=== PATIENT | female | born 1970 | race Caucasian/White ===

== ENCOUNTER 2020-05-28 13:08 | Inpatient (IN) | payer SELFPAY ==
[~2020-05-28] VITALS: Ht 165.1 cm; Wt 74.8 kg
[2020-05-28 15:48] LABS: HEMATOCRIT. 28.3 % (36.0-48.0); HEMOGLOBIN. 8.4 g/dL (12.0-16.0); MEAN CORPUSCULAR HEMOGLOBIN 19.5 pg (28.0-32.0); MEAN CORPUSCULAR VOLUME 65.4 fL (81.0-99.0); MEAN PLATELET VOLUME 7.6 fl (7.4-10.4); PLATELET 294 x1000/uL (130-400); RED BLOOD CELL COUNT 4.32 mill/uL (4.2-5.4); RED CELL DISTRIBUTION WIDTH 17.6 % (11.6-14.6)
[2020-05-28 16:01] LABS: CHLORIDE 110 mEq/L (98-107)
[2020-05-28 16:34] LABS: CLARITY URINE CLEAR (CLEAR); COLOR URINE YELLOW (YELLOW); KETONES URINE NEGATIVE (NEGATIVE); LEUKOCYTE ESTERASE URINE NEGATIVE (NEGATIVE); NITRITE URINE NEGATIVE (NEGATIVE); OCCULT BLOOD URINE NEGATIVE (NEGATIVE); PROTEIN URINE NEGATIVE (NEGATIVE); SPECIFIC GRAVITY URINE 1.024 (1.005-1.030)
[2020-05-28] MEDS ORDERED: VANCOMYCIN 1 G PREMIX 200 ML IV SCH (16:45)
[2020-05-28 17:17] LABS: PLATELET ESTIMATE NORMAL
[2020-05-28] MEDS ORDERED: DOCUSATE SODIUM 100MG CAPSULE PO PRN (18:00)
[2020-05-28] MEDS ORDERED: NITROGLYCERIN 0.4MG TABLET SL SL PRN (18:00)
[2020-05-28] MEDS ORDERED: MAGNESIUM/ALUMINUM HYDROXIDE/SIMETHICONE 30ML UDC PO PRN (18:00)
[2020-05-28] MEDS ORDERED: NA PHOS,M-B/NA PHOS,DI-BA ENEMA 118ML PR PRN (18:00)
[2020-05-28] MEDS ORDERED: ACETAMINOPHEN 325MG TABLET PO PRN ×2 (18:00)
[2020-05-28] MEDS ORDERED: ONDANSETRON HCL 4MG/2ML INJ IV PRN (18:00)
[2020-05-28] MEDS ORDERED: ZOLPIDEM TARTRATE 5MG TABLET PO PRN (18:00)
[2020-05-28] MEDS ORDERED: GUAIFENESIN 200MG/10ML SUGAR FREE UDC PO PRN (18:00)
[2020-05-28] MEDS ORDERED: KETOROLAC 15MG/ML VIAL IV PRN (18:00)
[2020-05-28] MEDS ORDERED: CLONIDINE 0.1MG TABLET PO PRN (18:00)
[2020-05-28] MEDS ORDERED: IPRATROPIUM/ALBUTEROL 0.5-3(2.5)MG/3ML NEB NEB PRN (18:00)
[2020-05-28] MEDS ORDERED: ENOXAPARIN 40MG/0.4ML SYR SUBCUT SCH (20:00)
[2020-05-28 20:28] LABS: TOTAL IRON BINDING CAPACITY 380 ug/dL (250-450)
[2020-05-28 20:37] LABS: *AMPHETAMINES SCREEN URINE PRESUMTIVE POSITIVE (NEGATIVE); *BARBITURATES SCREEN URINE PRESUMTIVE POSITIVE (NEGATIVE); *BENZODIAZEPINES SCREEN URINE NEGATIVE (NEGATIVE); CANNABINOID URINE SCREEN NEGATIVE (NEGATIVE); OPIATES URINE SCREEN NEGATIVE (NEGATIVE); PHENCYCLIDINE URINE SCREEN NEGATIVE (NEGATIVE)
[2020-05-28 20:38] LABS: *COCAINE SCREEN URINE NEGATIVE (NEGATIVE); METHADONE URINE SCREEN NEGATIVE (NEGATIVE)
[2020-05-28 20:42] LABS: FOLIC ACID (FOLATE) SERUM 14.2 ng/mL (>5.38)
[2020-05-28] MEDS: FAMOTIDINE 20MG TABLET PO SCH (21:00)
[2020-05-28] MEDS: ASCORBIC ACID 500 MG TABLET PO SCH (21:00)
[2020-05-28] MEDS ORDERED: IOHEXOL-300 100 ML BOTTLE ONE (21:27)
[2020-05-28 21:32] LABS: D-DIMER 0.91 mg/L FEU (<0.50); INR 1.1; PROTHROMBIN TIME 11.3 sec (9.6-11.0)
[2020-05-28] MEDS: PIPERACILLIN/TAZ 3.375G PREMIX 50 ML IV SCH (22:58)
[2020-05-29 00:57] VITALS: BP 134/84
[2020-05-29 01:12] VITALS: BP 135/64
[2020-05-29] MEDS: PIPERACILLIN/TAZ 3.375G PREMIX 50 ML IV SCH (02:30)
[2020-05-29 04:00] VITALS: BP 135/83
[2020-05-29] MEDS ORDERED: VANCOMYCIN 750 MG PREMIX 150 ML IV SCH (06:00)
[2020-05-29 06:03] LABS: CHLORIDE 109 mEq/L (98-107)
[2020-05-29 06:12] LABS: PHOSPHORUS 3.6 mg/dL (2.5-4.9)
[2020-05-29 06:53] LABS: HEMATOCRIT. 29.9 % (36.0-48.0); HEMOGLOBIN. 8.7 g/dL (12.0-16.0); MEAN CORPUSCULAR HEMOGLOBIN 19.1 pg (28.0-32.0); MEAN CORPUSCULAR VOLUME 65.3 fL (81.0-99.0); MEAN PLATELET VOLUME 8.4 fl (7.4-10.4); PLATELET 292 x1000/uL (130-400); RED BLOOD CELL COUNT 4.58 mill/uL (4.2-5.4)
[2020-05-29] MEDS ORDERED: CHOLECALCIFEROL (D3) 1000 UNIT TABLET PO SCH (09:00)
[2020-05-29] MEDS ORDERED: ZINC SULFATE 220 MG ( 50 ) CAPSULE PO SCH (09:00)
[2020-05-29] MEDS: FAMOTIDINE 20MG TABLET PO SCH (09:16)
[2020-05-29] MEDS: ASCORBIC ACID 500 MG TABLET PO SCH (09:16)
[2020-05-29] MEDS: PIPERACILLIN/TAZOBACTAM 3.375 G in DEXT 5% WATER 100 ML IV SCH ×2 (12:00→16:43)
[2020-05-29] MEDS ORDERED: VANCOMYCIN 1 G PREMIX 200 ML IV SCH (14:00)
[2020-05-29 15:55] LABS: NUCLEATED RED BLOOD CELLS 2 /100 WBC
[2020-05-29 15:56] LABS: PLATELET ESTIMATE NORMAL
== END 2020-05-29 18:10 | disposition left against medical advice (07) | DRG 720 ==
LOC: ER 13:08 → 7WST 16:38 → EDBEDREQ 17:10 → EDBEDREQSVC 18:50 → ENRESERV 23:38
PROVIDERS: ADMIT Internal Medicine; ATTEND Internal Medicine
DX: A41.9 Sepsis, unspecified organism (principal); U07.1 COVID-19; L03.116 Cellulitis of left lower limb; D63.8 Anemia in other chronic diseases classified elsewhere; E83.51 Hypocalcemia; F15.10 Other stimulant abuse, uncomplicated; Z53.29 Procedure and treatment not carried out because of patient's decision for other reasons
CPT/HCPCS: 36415; 71045; 72193; 80048; 80053; 80305; 81003; 82607; 82746; 83540; 83550; 83605; 83615; 83735; 83880; 84100; 84145; 85025; 85379; 87426; 93005; 93970; 96365; 99285; J1650; J1885; J2543; J3370; J7060; Q9967; U0003

== ENCOUNTER 2020-10-02 04:36 | Emergency (ER) | payer MEDICAID, OTHER ==
[~2020-10-02] VITALS: Ht 165.1 cm; Wt 75.0 kg
[2020-10-02 04:40] VITALS: BP 125/83
== END 2020-10-02 05:48 | disposition left against medical advice (07) ==
LOC: ER 04:36
DX: Z53.21 Procedure and treatment not carried out due to patient leaving prior to being seen by health care provider (principal); R51.9 Headache, unspecified

== ENCOUNTER 2021-08-23 20:44 | Emergency (ER) | payer MEDICAID, OTHER ==
[~2021-08-23] VITALS: Ht 167.6 cm; Wt 63.0 kg
[2021-08-23] MEDS ORDERED: MORPHINE SULFATE 4 MG/ML CPJ (NOT FOR IM USE) IV STA (22:03)
[2021-08-23] MEDS ORDERED: SODIUM CHLORIDE 0.9% 1,000 ML IV ONE (22:15)
[2021-08-23] MEDS ORDERED: HEPARIN 5000 UNITS/ML VIAL IV SCH (23:15)
[2021-08-23] MEDS ORDERED: HEPARIN 25,000 UNITS PREMIX 250 ML IV PRN (23:15)
[2021-08-23] MEDS ORDERED: MORPHINE SULFATE 4 MG/ML CPJ (NOT FOR IM USE) IV NR (23:39)
[2021-08-24] MEDS ORDERED: HEPARIN 80 UNITS/KG BOLUS IV NR
[2021-08-24] MEDS ORDERED: HEPARIN 25,000 UNITS PREMIX 250 ML IV SCH
[2021-08-24 00:01] LABS: BASOPHILS % 0.8 % (0.0-2.0); EOSINOPHILS % 2.3 % (0.0-5.0); HEMATOCRIT. 35.2 % (36.0-48.0); HEMOGLOBIN. 10.7 g/dL (12.0-16.0); LYMPHOCYTES % 20.5 % (20.0-50.0); MEAN CORPUSCULAR HEMOGLOBIN 20.6 pg (28.0-32.0); MEAN CORPUSCULAR VOLUME 67.7 fL (81.0-99.0); MEAN PLATELET VOLUME 7.6 fl (7.4-10.4); MONOCYTES % 6.4 % (2.0-8.0); PLATELET 319 x1000/uL (130-400)
[2021-08-24 00:10] LABS: CHLORIDE 112 mEq/L (98-107)
[2021-08-24 00:20] LABS: D-DIMER 4.24 mg/L FEU (<0.50); PARTIAL THROMBOPLASTIN TIME 27.3 sec (23.4-31.0)
[2021-08-24 02:00] VITALS: BP 132/76
[2021-08-24 05:17] LABS: PLATELET ESTIMATE NORMAL
[2021-08-24] MEDS ORDERED: HEPARIN BOLUS PRN aPTT <36 IV (06:00)
[2021-08-24] MEDS ORDERED: HEPARIN BOLUS PRN aPTT 37-44 IV (06:00)
== END 2021-08-24 02:43 | disposition short-term general hospital (02) ==
LOC: ER 20:44 → CANBEDREQ 08-24 04:42
DX: I82.493 Acute embolism and thrombosis of other specified deep vein of lower extremity, bilateral (principal); F15.10 Other stimulant abuse, uncomplicated; D64.9 Anemia, unspecified
CPT/HCPCS: 36415; 74176; 80053; 83690; 85025; 85379; 85610; 85730; 93970; 96365; 96366; 96375; 99291; J1644; J2270; J7030

== ENCOUNTER 2022-04-16 11:21 | Emergency (ER) | payer MEDICAID, OTHER ==
[~2022-04-16] VITALS: Ht 170.2 cm; Wt 68.0 kg
[2022-04-16] MEDS ORDERED: KETOROLAC 30MG/ML VIAL IV STA (11:49)
[2022-04-16] MEDS ORDERED: SODIUM CHLORIDE 0.9% 1,000 ML IV ONE (12:00)
[2022-04-16 13:37] LABS: BASOPHILS % 0.9 % (0.0-2.0); EOSINOPHILS % 0.8 % (0.0-5.0); HEMATOCRIT. 35.5 % (36.0-48.0); LYMPHOCYTES % 24.1 % (20.0-50.0); MEAN CORPUSCULAR HEMOGLOBIN 21.7 pg (28.0-32.0); MEAN PLATELET VOLUME 8.1 fl (7.4-10.4); MONOCYTES % 7.3 % (2.0-8.0); NEUTROPHILS % 66.9 % (40.0-76.0); PLATELET 333 x1000/uL (130-400); RED BLOOD CELL COUNT 5.07 mill/uL (4.2-5.4); RED CELL DISTRIBUTION WIDTH 17.3 % (11.6-14.6)
[2022-04-16 13:45] LABS: CHLORIDE 109 mEq/L (98-107)
[2022-04-16 13:50] LABS: INR 1.1; PROTHROMBIN TIME 11.3 sec (9.6-11.0)
[2022-04-16 14:14] LABS: PLATELET ESTIMATE NORMAL
[2022-04-16] MEDS ORDERED: LORAZEPAM 2MG/ML CPJ IV ONE (15:00)
[2022-04-16 15:38] LABS: CLARITY URINE CLOUDY (CLEAR); COLOR URINE YELLOW (YELLOW); KETONES URINE TRACE (NEGATIVE); LEUKOCYTE ESTERASE URINE 1+ (NEGATIVE); NITRITE URINE NEGATIVE (NEGATIVE); OCCULT BLOOD URINE NEGATIVE (NEGATIVE); PH URINE 6.5 (4.5-8.0); PROTEIN URINE NEGATIVE (NEGATIVE); SPECIFIC GRAVITY URINE 1.023 (1.005-1.030)
[2022-04-16] MEDS ORDERED: CIPR-263 MT (17:26)
[2022-04-16 21:00] VITALS: BP 111/71
== END 2022-04-16 21:28 | disposition home or self-care (01) ==
LOC: ER 15:27
DX: N39.0 Urinary tract infection, site not specified (principal)
CPT/HCPCS: 36415; 74176; 80053; 81003; 83690; 85025; 85610; 96361; 96374; 96375; 99285; J1885; J2060; J7030; Z7610

== ENCOUNTER 2022-12-02 11:33 | Emergency (ER) | payer OTHER ==
[~2022-12-02] VITALS: Ht 162.6 cm; Wt 80.0 kg
[~2022-12-02 11:33] MED LIST: CIPR-263 MT
[2022-12-02 11:53] VITALS: BP 120/80; PULSE 97; RESP 20; O2SAT 97
[2022-12-02 12:08] LABS: BASOPHILS % 1.3 % (0.0-2.0); DIFFERENTIAL COMMENT 0; EOSINOPHILS % 1.1 % (0.0-5.0); HEMATOCRIT. 35.1 % (36.0-48.0); LYMPHOCYTES % 26.8 % (20.0-50.0); MEAN CORPUSCULAR HGB CONC 31.3 g/dL (31.0-37.0); MEAN CORPUSCULAR VOLUME 70.2 fL (81.0-99.0); NEUTROPHILS % 63.8 % (40.0-76.0); PLATELET 366 x1000/uL (130-400); RED CELL DISTRIBUTION WIDTH 17.6 % (11.6-14.6); WHITE BLOOD COUNT 6.1 x1000/uL (4.5-11.0)
[2022-12-02 12:14] LABS: CHLORIDE 114 mEq/L (98-107); INDEX HEMOLYSI 1 (1-3); INDEX ICTERIC 1 (1-4); INDEX LIPEMIC 1 (1-3); POTASSIUM 3.3 mEq/L (3.5-5.1); SODIUM 141 mEq/L (136-145)
[2022-12-02 12:21] LABS: ALANINE AMINOTRANSFERASE 20 IU/L (13-61); ALBUMIN 3.4 g/dL (3.4-5.0); ASPARTATE AMINOTRANSFERASE 12 IU/L (15-37); BILIRUBIN TOTAL 0.5 mg/dL (0.1-1.0); CALCIUM 8.4 mg/dL (8.5-10.1); CARBON DIOXIDE 26 mEq/L (21-32); CREATININE 0.4 mg/dL (0.6-1.3); GLUCOSE 78 mg/dL (70-105); UREA NITROGEN BLOOD 12 mg/dL (7-21)
[2022-12-02 12:35] LABS: INR 1.1; PROTHROMBIN TIME 11.4 sec (9.6-11.0)
[2022-12-02] MEDS ORDERED: ACETAMINOPHEN 325MG TABLET PO ONE (13:45)
[2022-12-02 13:50] LABS: HCG SCREEN NEGATIVE
[2022-12-02] MEDS ORDERED: TOPUD PO (13:53)
[2022-12-02 14:44] VITALS: TEMP 97.3
== END 2022-12-02 14:46 | disposition home or self-care (01) ==
LOC: ER 11:33
DX: R10.9 Unspecified abdominal pain (principal); M19.90 Unspecified osteoarthritis, unspecified site
CPT/HCPCS: 36415; 74176; 80053; 84703; 85025; 99284

== ENCOUNTER 2023-07-18 15:07 | Emergency (ER) | payer MEDICAID ==
[~2023-07-18] VITALS: Ht 165.1 cm; Wt 73.0 kg
[~2023-07-18 15:07] MED LIST changes: +TOPUD PO
[2023-07-18 15:09] VITALS: O2SAT 100
[2023-07-18] MEDS ORDERED: TOPUD PO (16:19)
[2023-07-18] MEDS ORDERED: IBUP-2028 MT (16:19)
[2023-07-18] MEDS: IBUPROFEN 400MG TABLET PO ONE (16:25)
[2023-07-18] MEDS: HYDROCODONE/ACETAMINOPHEN 5/325MG TABLET PO ONE (16:26)
[2023-07-18 19:02] VITALS: BP 134/87; PULSE 84; RESP 14; TEMP 97.6
== END 2023-07-18 19:15 | disposition home or self-care (01) ==
LOC: ER 15:07
DX: M77.31 Calcaneal spur, right foot (principal); Z99.3 Dependence on wheelchair
CPT/HCPCS: 29515; 73590; 73600; 73610; 73630; 99284